=== PATIENT | female | born 1970 | race American Indian/Alaskan Native ===

== ENCOUNTER 2021-01-02 08:57 | Emergency (ER) | payer OTHER ==
[2021-01-02 09:10] VITALS: BP 184/90
[2021-01-02] MEDS ORDERED: levETIRAcetam 1,000 MG in SODIUM CHLORIDE 0.9% 100 ML IV ONE (10:25)
--- NOTE | 2021-01-02 10:25 | Emergency Department Report ---
ED Seizure HPI - General Chief Complaint: Seizure Stated Complaint: SEIZURE Time Seen by Provider: 01/02/21 10:00 Source: patient Mode of arrival: Stretcher Limitations: No Limitations - History of Present Illness Initial Comments: 50-year-old female, history of hypertension, presents to ED following seizure at work. Apparently, patient has had 2 previous "episodes" similar to this. I spoke to patient's coworker who witnessed the episode at work. He states patient appeared to have a seizure. States it lasted for approximately 1 minute. States during this time, patient's eyes were rolling back, and her extremities were "clenched." He reports patient was confused when she regained consciousness. She denies any urinary incontinence. States following her first episode, she was seen by her PCP. States she had a CT scan was normal. Patient also followed up with a neurologist and had an EEG. Patient was also scheduled to get an MRI, but states her insurance would not pay for it. Patient has not yet received the results of her EEG. Patient's only complaint at this time is a mild headache. Patient does not remember what happened. MD Complaint: seizure -: This morning Description of Episode: loss of consciousness -: minutes(s) (1) Place: work Possible Precipitating Event: none Associated Symptoms: denies: chest pain, cough, fever/chills, loss of appetite, shortness of breath Treatments Prior to Arrival: none - Related Data Previous Rx's Medication Instructions Recorded Last Taken Type levETIRAcetam [Keppra TAB] 500 mg PO BID #60 tablet 01/02/21 Unknown Rx Allergies Allergy/AdvReac Type Severity Reaction Status Date / Time No Known Allergies Allergy Unverified 01/02/21 09:01 ED Review of Systems ROS: Stated complaint: SEIZURE Other details as noted in HPI Comment: All other systems reviewed and negative Constitutional: denies: chills, fever Respiratory: denies: shortness of breath Cardiovascular: denies: chest pain Gastrointestinal: denies: nausea, vomiting Neurological: headache ED Past Medical Hx - Past Medical History Hx Hypertension: Yes - Surgical History Additional Surgical History: - Social History Smoking Status: Never Smoker - Medications Home Medications: Home Medications Medication Instructions Recorded Confirmed Last Taken Type levETIRAcetam [Keppra TAB] 500 mg PO BID #60 tablet 01/02/21 Unknown Rx ED Physical Exam - General Limitations: No Limitations General appearance: alert, in no apparent distress - Head Head exam: Present: atraumatic, normocephalic - Eye Eye exam: Present: normal appearance, EOMI - ENT ENT exam: Present: mucous membranes moist - Neck Neck exam: Present: normal inspection - Respiratory Respiratory exam: Present: normal lung sounds bilaterally. Absent: respiratory distress - Cardiovascular Cardiovascular Exam: Present: regular rate, normal rhythm - GI/Abdominal GI/Abdominal exam: Present: soft. Absent: distended, tenderness - Extremities Exam Extremities exam: Present: normal inspection - Neurological Exam Neurological exam: Present: alert, oriented X3, CN II-XII intact. Absent: motor sensory deficit - Psychiatric Psychiatric exam: Present: normal affect, normal mood - Skin Skin exam: Present: warm, dry, intact, normal color ED Course Vital Signs 01/02/21 09:04 Temperature 98.5 F Pulse Rate 77 Respiratory 20 Rate Blood Pressure 184/90 O2 Sat by Pulse 98 Oximetry ED Medical Decision Making - Lab Data Result diagrams: 01/02/21 10:41 01/02/21 10:41 - Radiology Data Radiology results: report reviewed, image reviewed - Medical Decision Making 51-year-old female presents to ED following seizure at work. Apparently this is her third seizure. She has had at work. Patient reports she has seen a neurologist and has undergone EEG testing. Awaiting MRI. Patient states she has not been placed on any antiseizure medications by the neurologist. Today, patient is currently A&O x3, no neuro deficits on exam. Labs are unremarkable, CT head shows no acute findings. Patient was given Keppra load here in the ED. No seizure activity during her time in the ED. Patient will be discharged with prescription for Keppra. She has been advised to not drive until she receives clearance from her neurologist. - Differential Diagnosis Seizure, intracranial abnormality, electrolyte abnormality Critical care attestation.: If time is entered above; I have spent that time in minutes in the direct care of this critically ill patient, excluding procedure time. ED Disposition Clinical Impression: Seizure Disposition: DC-01 TO HOME OR SELFCARE Is pt being admited?: No Condition: Stable Instructions: Seizure, Adult, [id number] Prescriptions: levETIRAcetam [Keppra TAB] 500 mg PO BID #60 tablet Referrals: PRIMARY CARE, [Primary Care Provider] - 2-3 Days JUAN PHELAN MD [Referring] - 2-3 Days Forms: Work/School Release Form(ED) Time of Disposition: 12:22
--- NOTE | 2021-01-02 10:54 | Cat Scan Report ---
CT head/brain wo con INDICATION: seizure. TECHNIQUE: Routine CT head. All CT scans at this location are performed using CT dose reduction for A LOREN by means of automated exposure control. COMPARISON: None. FINDINGS: Intracranial: Mejia-white matter differentiation is maintained. No intracranial hemorrhage. No extra a xial collection. No hydrocephalus. No herniation. Sinuses: Paranasal sinuses and mastoid air cells are essentially clear. Orbits: Globes are intact. Calvarium: No acute fracture. IMPRESSION: 1. No acute intracranial abnormality. Signer Name: Jun Colorado MD Signed: 01/02/2021 10:49 AM Workstation Name: [id number]
[2021-01-02] MEDS ORDERED: levETIRAcetam 1000 MG/NS 0.75% 1,000 MG/100 ML BAG IV SCH (11:00)
[2021-01-02 11:29] LABS: Basophils # (Auto) 0.1 K/mm3 (0.0-0.1); Basophils % (Auto) 0.7 % (0.0-1.8); Eosinophils % (Auto) 0.4 % (0.0-4.3); Hematocrit 41.1 % (30.3-42.9); Hemoglobin 13.6 gm/dl (10.1-14.3); Lymphocytes # (Auto) 1.5 K/mm3 (1.2-5.4); Lymphocytes % (Auto) 14.2 % (13.4-35.0); Mean Corpuscular HGB Conc 33 % (30-34); Mean Corpuscular Volume 91 fl (79-97); Monocytes # (Auto) 0.6 K/mm3 (0.0-0.8); Monocytes % (Auto) 5.6 % (0.0-7.3); Platelet Count 268 K/mm3 (140-440); Red Blood Count 4.53 M/mm3 (3.65-5.03); Red Cell Distribution Width 15.5 % (13.2-15.2)
[2021-01-02 12:14] LABS: Blood Urea Nitrogen 11 mg/dL (7-17); Calcium 9.3 mg/dL (8.4-10.2); Hemolysis Index 14
[2021-01-02 12:16] LABS: BUN/Creatinine Ratio 18
== END 2021-01-02 13:30 | disposition home or self-care (01) ==
LOC: ED 08:57
DX: R56.9 Unspecified convulsions (principal); Z98.890 Other specified postprocedural states; Z79.899 Other long term (current) drug therapy
CPT/HCPCS: 36415; 70450; 80048; 84703; 85025; 96374; 99284; J1953